=== PATIENT | male | born 1935 | race Caucasian/White ===

== ENCOUNTER 2017-05-30 08:59 | Inpatient (IN) ==
[2017-05-30 10:27] VITALS: BMI 28.8
[2017-05-30] MEDS ORDERED: BUDESONIDE/FORMOTEROL 80/4.5mcg INHALER ORAL INH PRN (12:43)
--- NOTE | 2017-05-30 13:17 | XRay Report ---
Indication: PREOP PROCEDURE: XR chest 1V: Encounter: Initial Comparison: None Findings: Calcified granuloma in the right upper lobe. Lung gillis are otherwise clear. Mild hyperinflation. No pleural effusion or pneumothorax. Heart size and mediastinal contours are within normal limits. Pulmonary vascularity is normal. Scoliosis. Impression: No acute cardiopulmonary disease. Hyperinflation suggesting possible COPD. .
--- NOTE | 2017-05-30 13:52 | Orthopedic Consult Note ---
Orthopedic Consultation HPI - Consultation Info Consult Date: 05/30/17 Attending Physician: Gordon Lozoya MD Consult Reason: fracture (Right hip) - History of Present Illness Mr. Mojica is an 81 year old male who fell while going out to get his mail. Prior to his fall he states he began to shake uncontrollably and got weak. He denied accompanying chest pain or shortness of breath. He denies hitting his head with the fall. He has been able to walk since the fall. His pain is presently in the right lateral hip. It is worse with weight bearing and better with rest. He has been evaluated by Dr. Jay, who ordered right knee, pelvis and right hip films. The X-rays revealed a right hip subcapital femoral neck fracture with minimal valgus angulation. Dr. Lozoya was consulted for definitive surgical management. Dr. Jay's notes are unavailable at the time of this consult. The patient states his past medical history includes cardiac stents, Hep C for which he has completed treatment, and a remote history of smoking ( quite 17 years ago), and "trouble with my prostate". He denies headache, change in vision, tinnitus, trouble swallowing, chest pain, shortness of breath , abdominal pain, dysuria, hematuria, hematochezia peripheral paraesthesias, or open wound. Review of Systems - Constitutional Constitutional: Absent: chills, fatigue, headache(s) - EENT Eyes: Absent: blurry vision, change in vision Ears, nose, mouth, throat: Absent: headaches, head injury, ear pain, tinnitus - Cardiovascular Cardiovascular: Absent: chest pain, edema Vascular: Absent: pallor of an extermity, pedal edema - Respiratory Respiratory: Absent: cough, hemoptysis - Gastrointestinal Gastrointestinal: Absent: dysphagia, hematochezia - Genitourinary Genitourinary General: Present: other (he describes overflow incontinence) - Musculoskeletal Musculoskeletal: Present: as per HPI - Integumentary/Breasts Integumentary: Present: as per HPI. Absent: wounds - Neurological Neurological: Present: as per HPI, abnormal movements, frequent falls, tremor(s) - Endocrine Endocrine: Absent: cold intolerance PFSH Patient Stated Medical History Cataracts Yes: bilateral-removed Hearing Loss Yes Hypertension Yes Pneumonia Yes: when a teenager Gastroesophageal Reflux Yes: "now and then" Disease Hepatitis Yes: hepatitis C-at least 3 yrs ago Hx Renal Disease No Blood Transfusions Yes: as a child - Social History Smoking status: Former smoker Medications Home Medications Medication Instructions Recorded Confirmed Type Amlodipine Besylate 10 mg PO DAILY #0 10/05/09 05/30/17 History Aspirin [Aspir 81] 81 mg PO DAILY #0 10/05/09 05/30/17 History Finasteride 5 mg PO DAILY #0 11/24/11 05/30/17 History Ipratropium/Albuterol Sulfate 1 puff IH QID #0 10/20/13 05/30/17 History (Combivent Inhaler) Nitroglycerin [Nitrostat] 0.4 mg SL PRN PRN #0 tab 10/20/13 05/30/17 History Verapamil HCl [Verapamil ER] 120 mg PO DAILY #0 tab 10/20/13 05/30/17 History Calcium Carbonate [Calcium] 1 tab PO BID #0 02/08/15 05/30/17 History Atorvastatin Calcium 80 mg PO HS 05/30/17 05/30/17 History Budesonide/Formoterol 80/4.5 1 puff INH PRN PRN 05/30/17 05/30/17 History Chlorthalidone 25 mg PO DAILY 05/30/17 05/30/17 History Escitalopram [Lexapro] 10 mg PO DAILY 05/30/17 05/30/17 History Magnesium Oxide 250 mg PO DAILY 05/30/17 05/30/17 History Omeprazole 40 mg PO DAILY 05/30/17 05/30/17 History Tramadol HCl [Ultram] 50 mg PO Q8H PRN 05/30/17 05/30/17 History Allergies Allergy/AdvReac Type Severity Reaction Status Date / Time No Known Drug Allergies Allergy Unknown Verified 05/30/17 10:27 Orthopedic Exam Vital signs: Temperature 96.1 F L 05/30/17 10:28 Pulse Rate 62 05/30/17 10:28 Respiratory Rate 16 05/30/17 10:28 Blood Pressure 148/74 H 05/30/17 10:28 Pulse Oximetry 96 05/30/17 10:28 - Constitutional General Appearance: Present: alert, orientated x3, no acute distress - Respiratory Exam Present: non-labored - Cardiovascular Exam Present: pedal pulses intact Capillary Refill: < 2-3 Seconds - Abdominal Exam Absent: tenderness Comments: negative McBurney's point. Abdomen round, nontender, no rebound tenderness. - Extremities Exam Present: pulses intact. Absent: calf tenderness Comments: right hip TTP over the greater trochanter. He is able to actively IR/ER the hip without excruciating hip pain. - Integumentary Exam Present: pink, warm, dry, intact - Lymphatic Lymphatic: Absent: lymphedema - Neurological Exam Present: intact to light touch, no deficits - Psychiatric Exam Present: normal affect - Labs Result Diagrams: 05/30/17 13:03 05/30/17 13:03 Abnormal lab results 05/30/17 05/30/17 Range/Units 13:03 13:03 RBC 4.45 L (4.50-5.90) M/MM3 Plt Count 129 L (130-400) T/MM3 Neut % (Auto) 74.1 H (33-66) % Lymph % (Auto) 15.9 L (23-45) % BUN 27.0 H (9-20) MG/DL Total Bilirubin 1.40 H (0.20-1.30) MG/DL Specimen Hemolysis 27 H (0-25) H & H 05/30/17 Range/Units 13:03 Hgb 14.0 (13.5-17.5) GM/DL Hct 41.4 (41-53) % Coagulation 05/30/17 Range/Units 13:03 INR 1.17 (0.99-1.21) Impression and Recommendation (1) Fracture of hip, right, closed Current visit: Yes Qualifiers: Encounter type: initial encounter Qualified Code(s): S72.001A - Fracture of unspecified part of neck of right femur, initial encounter for closed fracture Status: Acute Diagnosis: right hip subcapital femoral neck fracture, mild valgus angulation. Recommendation: Dr. Lozoya recommends cannulated screw fixation tomorrow. orders for consent and NPO after midnight will be provided. Medical clearance from Dr. Jay is appreciated. Hospital Course Summary Disclaimer: The visit summary below is not to be considered part of the above Progress Note.
--- NOTE | 2017-05-30 16:18 | Internal Med History&Physical ---
Internal Medicine HPI Chief complaint: Right femoral neck fracture History of present illness: Augustine Mojica is a very pleasant 81-year-old white gentleman who presented to my office yesterday afternoon following a fall at home. His called me about 3: 00 in the afternoon regarding a fall the Augustine had while going out to get the mail. Augustine indicates that he felt a little lightheaded and twisted to his left and then began to fall uncontrollably. He does not describe vertigo. He never lost consciousness. He never hit his head. He states that he really tried to fall into the grass of the yard where was padded. A neighbor helped walk him back up to the house. When Marie brought him to the office he had multiple skin tears along his right arm and an injured left thumb as well as in her right hip pain and knee pain. We cleaned his wound since Steri-Stripped the skin tears and then send him for x-rays. Dr. Lewis notified me this morning that Augustine had sustained a right femoral neck nondisplaced fracture. At that point I contacted his Marie and she was able to contact family members to get him to the hospital for direct admission. Review of Systems - Constitutional Constitutional: Present: weakness. Absent: anorexia, chills, fever(s), headache (s) - EENMT Eyes: Present: requires corrective lenses. Absent: blurry vision, change in vision, diplopia Ears: Absent: ear pain, tinnitus Balance: Absent: vertigo Mouth/Throat: Absent: pain, scratchy throat, changes in swallowing, painful swallowing - Cardiovascular Cardiovascular: Present: edema. Absent: chest pain, palpitations Vascular: Absent: pallor of an extermity, pedal edema - Respiratory Respiratory: Absent: cough, dyspnea, hemoptysis, dyspnea on exertion - Gastrointestinal Gastrointestinal: Absent: abdominal pain, change in bowel habits, constipation, diarrhea, nausea, vomiting - Genitourinary Genitourinary: Present: urinary hesitancy - Musculoskeletal Musculoskeletal: Absent: back pain, deformity - Neurological Neurological: Present: dizziness, tremor(s) - Psychiatric Psychiatric: Absent: abnormal sleep pattern, anxiety, depression - Endocrine Endocrine: Absent: cold intolerance, excessive sweating, flushing, heat intolerance, palpitations - Hematologic/Lymphatic Hematologic/Lymphatic: Present: easy bruising. Absent: easy bleeding, lymphadenopathy - Allergic/Immunologic Allergic/Immunologic: Absent: tongue swelling, throat swelling, urticaria PFSH Patient Stated Medical History Cataracts Yes: bilateral-removed Hearing Loss Yes Hypertension Yes Pneumonia Yes: when a teenager Gastroesophageal Reflux Yes: "now and then" Disease Hepatitis Yes: hepatitis C-at least 3 yrs ago Hx Renal Disease No Blood Transfusions Yes: as a child Medical History Updates: History of hepatitis C. He is now seronegative after treatment. History of left hyperparathyroidism. Status post parathyroidectomy. Surgical History: EGD 2014, heart catheter with stent placement in 2009, hernia repair 2013, myringotomy 2011, Toskes and adenoids 194, left parathyroidectomy 2014. Family History: Father and mother alcohol addiction - Social History Smoking status: Former smoker Substance use type: does not use Alcohol intake frequency: does not drink Housing: house Household members: spouse service: Yes Current occupational status: retired Does patient use chewing tobacco?: No Current residence: Apartment/Private Home Medications Home Medications Medication Instructions Recorded Confirmed Type Amlodipine Besylate 10 mg PO DAILY #0 10/05/09 05/30/17 History Aspirin [Aspir 81] 81 mg PO DAILY #0 10/05/09 05/30/17 History Finasteride 5 mg PO DAILY #0 11/24/11 05/30/17 History Ipratropium/Albuterol Sulfate 1 puff IH QID #0 10/20/13 05/30/17 History (Combivent Inhaler) Nitroglycerin [Nitrostat] 0.4 mg SL PRN PRN #0 tab 10/20/13 05/30/17 History Verapamil HCl [Verapamil ER] 120 mg PO DAILY #0 tab 10/20/13 05/30/17 History Calcium Carbonate [Calcium] 1 tab PO BID #0 02/08/15 05/30/17 History Atorvastatin Calcium 80 mg PO HS 05/30/17 05/30/17 History Budesonide/Formoterol 80/4.5 1 puff INH PRN PRN 05/30/17 05/30/17 History Chlorthalidone 25 mg PO DAILY 05/30/17 05/30/17 History Escitalopram [Lexapro] 10 mg PO DAILY 05/30/17 05/30/17 History Magnesium Oxide 250 mg PO DAILY 05/30/17 05/30/17 History Omeprazole 40 mg PO DAILY 05/30/17 05/30/17 History Tramadol HCl [Ultram] 50 mg PO Q8H PRN 05/30/17 05/30/17 History Allergies Allergy/AdvReac Type Severity Reaction Status Date / Time No Known Drug Allergies Allergy Unknown Verified 05/30/17 10:27 Exam Vital signs: Temperature 96.1 F L 05/30/17 10:28 Pulse Rate 62 05/30/17 10:28 Respiratory Rate 16 05/30/17 10:28 Blood Pressure 148/74 H 05/30/17 10:28 Pulse Oximetry 96 05/30/17 10:28 - Constitutional no acute distress - Routine HEENT Exam Head: Present: normocephalic, atraumatic Eye: Present: EOMI, PERRL, conjunctivae pink. Absent: conjunctival icterus, scleral injection, periorbital swelling ENT: Present: mucous membranes moist, oropharynx clear, nares patent Nose: moist mucous membranes Throat: normal inspection - Routine Neck Exam Present: supple, full ROM, normal carotid upstroke. Absent: JVD, carotid bruit , lymphadenopathy, thyromegaly - Routine Chest/Breast/Axilla Exam Chest wall: Absent: tenderness Breast: Absent: tenderness Axillae: Absent: lymphadenopathy - Routine Respiratory Exam Present: CTA bilaterally. Absent: accessory muscle use, dyspnea, decreased breath sounds, rales, rhonchi, wheezes, crackles - Routine Cardiovascular Exam Present: RRR, no murmur. Absent: S3, S4 - Routine Abdominal Exam Present: soft, normoactive bowel sounds, non distended, non tender. Absent: rebound, guarding, rigid - Routine Extremities Exam Absent: cyanosis, clubbing, edema, full ROM - Routine Skin Exam Present: wounds (multiple skin tags on the right arm) - Routine Neurological Exam Present: alert, oriented X3, tremors (intention) - Routine Psychiatric Exam Present: normal affect, normal thought process, cooperative, good insight, good judgment. Absent: depressed, anxious Internal Medicine Results - Labs CBC & Chem 7: 05/30/17 13:03 05/30/17 13:03 Labs: Short CBC 05/30/17 Range/Units 13:03 WBC 8.1 (4.5-11.0) T/MM3 Hgb 14.0 (13.5-17.5) GM/DL Hct 41.4 (41-53) % Plt Count 129 L (130-400) T/MM3 BMP 05/30/17 13:03 Sodium 142 Potassium 3.7 Chloride 105 Carbon Dioxide 29 BUN 27.0 H Creatinine 1.3 Glucose 95 Calcium 9.4 Liver Function 05/30/17 Range/Units 13:03 Total Bilirubin 1.40 H (0.20-1.30) MG/DL AST 24 (17-59) U/L ALT 40 (21-72) U/L Alkaline Phosphatase 64 (38-126) U/L Albumin 4.0 (3.5-5.0) G/DL - Imaging and Cardiology Chest x-ray Status: image reviewed by me Assessment and Plan - Assessment and Plan (1) Fracture of hip, right, closed Current visit: Yes Status: Acute Ortho consulted and surgery planned for tomorrow (2) Fall with significant injury Current visit: Yes Status: Acute (3) Hypertension Current visit: Yes Status: Chronic (4) Gastroesophageal reflux disease Current visit: Yes Status: Chronic (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
[2017-05-30] MEDS: ATORVASTATIN 40 MG TABLET PO SCH (20:30)
[2017-05-30] MEDS: CALCIUM CARBONATE 600 MG TABLET PO SCH (20:31)
[2017-05-30] MEDS ORDERED: Ipatropium/Albuterol 20/100mcg INHALER (4gm) ORAL INH SCH (21:15)
[2017-05-30] MEDS: ALBUTEROL/IPRATROPIUM 2.5mg-0.5mg/3ml NEB AEROSOL SCH ×2 (21:48→21:51)
[2017-05-30] MEDS: BUDESONIDE/FORMOTEROL 80/4.5mcg INHALER ORAL INH SCH (21:52)
[2017-05-31] MEDS: OMEPRAZOLE 20 MG CAPSULE PO SCH (06:40)
[2017-05-31] MEDS: ALBUTEROL/IPRATROPIUM 2.5mg-0.5mg/3ml NEB AEROSOL SCH ×4 (07:01→19:15)
[2017-05-31] MEDS: Verapamil SR 120 MG TABLET (12Hr) PO SCH ×2 (07:39→08:11)
[2017-05-31] MEDS: CHLORTHALIDONE 25 MG TABLET PO SCH ×2 (07:40→08:11)
[2017-05-31] MEDS: AMLODIPINE 10 MG TABLET PO SCH ×2 (07:40→08:12)
[2017-05-31] MEDS ORDERED: CEFAZOLIN 1 G INJECTION IVP ONE (08:00)
[2017-05-31] MEDS: CALCIUM CARBONATE 600 MG TABLET PO SCH ×2 (08:11→21:51)
[2017-05-31] MEDS: FINASTERIDE 5 MG TABLET PO SCH (08:12)
[2017-05-31] MEDS: MAGNESIUM OXIDE 400 MG TABLET PO SCH (08:12)
[2017-05-31] MEDS: ESCITALOPRAM 10 MG TABLET PO SCH (08:12)
[2017-05-31] MEDS ORDERED: INFLUENZA VAC High Dose 2017-18 (Fluzone HD*) (>=65yo) 0.5ml IM ONE (09:00)
[2017-05-31] MEDS: BUDESONIDE/FORMOTEROL 80/4.5mcg INHALER ORAL INH SCH ×2 (09:14→20:30)
[2017-05-31] MEDS ORDERED: INFLUENZA VAC. INJ. ADMIN CHARGE INJ ONE (09:19)
[2017-05-31] MEDS ORDERED: INHALER ASSIST DEVICE (Optichamber) MC ONE (09:30)
[2017-05-31] MEDS: LR 1,000 ML IV SCH ×2 (11:10→19:38)
[2017-05-31] MEDS ORDERED: PROPOFOL 500 MG/50 ML VIAL IV ONE ×2 (11:45→12:21)
[2017-05-31] MEDS ORDERED: FentaNYL 100 MCG/2 ML INJECTION ONE (12:12)
--- NOTE | 2017-05-31 12:20 | Anesthesia Preoperative Report ---
Anesthesia Preoperative Record - Date and Time Date: 05/31/17 Preoperative Diagnosis: Non Displaced Hip Fracture Proposed Procedure: ORIF RIGHT HIP NPO Since Date: 05/31/17 NPO Since Time: 00:00 Allergies/Adverse Reactions: Allergies Allergy/AdvReac Type Severity Reaction Status Date / Time No Known Drug Allergies Allergy Unknown Verified 05/30/17 10:27 - Vital Signs Vital Signs: Temperature 98.0 F 05/31/17 10:35 Pulse Rate 62 05/31/17 10:35 Respiratory Rate 18 05/31/17 10:35 Blood Pressure 132/65 05/31/17 10:35 Pulse Oximetry 94 05/31/17 10:35 Height and Weight: Height 1.83 m Weight 97.1 kg Body Mass Index 28.8 - Medications Inpatient Medications: Current Medications Albuterol/Ipratropium (Duoneb) 3 ml AEROSOL RTQID [facility] Last Admin: 05/31/17 10:42 Dose: Not Given Amlodipine Besylate (Norvasc) 10 mg PO DAILY [facility] Last Admin: 05/31/17 08:12 Dose: Not Given Atorvastatin Calcium (Lipitor) 80 mg PO HS [facility] Last Admin: 05/30/17 20:30 Dose: 80 mg Budesonide/Formoterol Fumarate (Symbicort Inhaler) 1 puff ORAL INH PRN PRN PRN Reason: Shortness of air Budesonide/Formoterol Fumarate (Symbicort Inhaler) 2 puff ORAL INH RTBID [facility] Last Admin: 05/31/17 09:14 Dose: 2 puff Calcium Carbonate (Caltrate) 600 mg PO BID [facility] Last Admin: 05/31/17 08:11 Dose: Not Given Chlorthalidone (Hygroton) 25 mg PO DAILY [facility] Last Admin: 05/31/17 08:11 Dose: Not Given Escitalopram Oxalate (Lexapro) 10 mg PO DAILY [facility] Last Admin: 05/31/17 08:12 Dose: Not Given Finasteride (Proscar) 5 mg PO DAILY [facility] Last Admin: 05/31/17 08:12 Dose: Not Given Lactated Ringer's (Lactated Ringers) 1,000 mls @ 30 mls/hr IV .Q24H [facility] Last Admin: 05/31/17 11:10 Dose: 30 mls/hr Magnesium Oxide (Magox) 250 mg PO DAILY [facility] Last Admin: 05/31/17 08:12 Dose: Not Given Omeprazole (Prilosec) 40 mg PO ACB [facility] Last Admin: 05/31/17 06:40 Dose: 40 mg Sodium Chloride (Iv Flush) 10 - 80 ml IV PRN PRN PRN Reason: Flushing Verapamil HCl (Calan Sr) 120 mg PO DAILY [facility] Last Admin: 05/31/17 08:11 Dose: Not Given Home Medications: Home Medications Medication Instructions Recorded Confirmed Type Amlodipine Besylate 10 mg PO DAILY #0 10/05/09 05/30/17 History Aspirin [Aspir 81] 81 mg PO DAILY #0 10/05/09 05/30/17 History Finasteride 5 mg PO DAILY #0 11/24/11 05/30/17 History Ipratropium/Albuterol Sulfate 1 puff IH QID #0 10/20/13 05/30/17 History (Combivent Inhaler) Nitroglycerin [Nitrostat] 0.4 mg SL PRN PRN #0 tab 10/20/13 05/30/17 History Verapamil HCl [Verapamil ER] 120 mg PO DAILY #0 tab 10/20/13 05/30/17 History Calcium Carbonate [Calcium] 1 tab PO BID #0 02/08/15 05/30/17 History Atorvastatin Calcium 80 mg PO HS 05/30/17 05/30/17 History Budesonide/Formoterol 80/4.5 2 puff INH BID PRN 05/30/17 05/30/17 History Chlorthalidone 25 mg PO DAILY 05/30/17 05/30/17 History Escitalopram [Lexapro] 10 mg PO DAILY 05/30/17 05/30/17 History Magnesium Oxide 250 mg PO DAILY 05/30/17 05/30/17 History Omeprazole 40 mg PO DAILY 05/30/17 05/30/17 History Tramadol HCl [Ultram] 50 mg PO Q8H PRN 05/30/17 05/30/17 History - Medical History Cardiovascular: Reports: Coronary Artery Disease, Hypertension Gastrointestional: Reports: Gastroesophageal Reflux Disease - Surgical History Cardiac Surgeries/Treatments: DENIES: Pacemaker Endocrine Surgery/Treatments: Reports: Parathyroid Surgery Reproductive Surgery/Treatment: DENIES: Mastectomy Anesthesia Reactions: None Hx Family Anesthesia Reaction: No History of Motion Sickness: No - Social History Smoking Status: Former smoker (QUIT 2000 WITH A 40 YEAR HISTORY) Hx Chewing Tobacco Use: No Substance Use Type: does not use Alcohol Intake Frequency: does not drink - Pertinent Findings Laboratory: CBC and BMP 05/31/17 04:00 05/31/17 04:00 BMP 05/30/17 05/31/17 13:03 04:00 Sodium 142 141 Potassium 3.7 3.3 L Chloride 105 102 Carbon Dioxide 29 30 BUN 27.0 H 24.0 H Creatinine 1.3 1.2 Glucose 95 93 Calcium 9.4 9.1 Liver Function 05/30/17 Range/Units 13:03 Total Bilirubin 1.40 H (0.20-1.30) MG/DL AST 24 (17-59) U/L ALT 40 (21-72) U/L Alkaline Phosphatase 64 (38-126) U/L Albumin 4.0 (3.5-5.0) G/DL EKG: Sinus Rhythm, First Degree AV Block EKG Ectopy: Bundle Branch Block - Physical Exam Respiratory Exam: Present: lungs clear Cardiovascular Exam: Present: regular rate and rhythm - Airway Assessment Mallampati Score: II TMD: 2 Fingerbreadths Teeth: upper dentures, lower dentures Overall Assessment: no airway concerns - ASA ASA Score: 3 - Plan Anesthesia: General TIVA - Discussion Discussion: Discussed risks/options/alternatives of anesthesia and questions answered. Patient consents. Nursing pain assessment noted. Present for Discussion: spouse Attestation Statement: Prior to the delivery of any anesthetic medication, I examined the patient, developed the plan, obtained the patient's consent and discussed the risk and benefits of the procedure with the patient/guardian. - Additional Information Seen by Anesthesia: Yes
[2017-05-31] MEDS ORDERED: BUPIV 0.25% 30ml/LIDO 1% 30ml MIXTURE ID ONE (12:37)
[2017-05-31] MEDS ORDERED: MORPHINE SULFATE 10 MG/ML VIAL IVP PRN (13:31)
[2017-05-31] MEDS ORDERED: ONDANSETRON 4 MG/2 ML INJECTION IVP PRN (13:31)
[2017-05-31] MEDS ORDERED: NOZIN NASAL SWAB NAS ONE (13:31)
[2017-05-31] MEDS: NOZIN NASAL SWAB NAS SCH ×2 (13:42→21:51)
--- NOTE | 2017-05-31 13:53 | Remote Fluorsocopy Report ---
Indication: NONDISPLACED FX OF RIGHT HIP PROCEDURE: RF hip RT 2 view: Encounter: Initial Comparison: Pelvis radiographs dated May 29, 2017 Findings: Four fluoroscopic spot images are submitted for interpretation. Images show internal fixation of the right femoral neck fracture with placement of three partially threaded cannulated screws across the femoral head and neck. Stable alignment. Impression: Fluoroscopy as above. Fluoroscopy time is 70 seconds. Fluoroscopy dose is 2180 mRad. .
[2017-05-31] MEDS: HYDROCODONE/APAP 5mg/325mg TABLET PO PRN ×2 (14:31→21:52)
--- NOTE | 2017-05-31 16:11 | Operative Note ---
DATE OF OPERATION 05/31/2017 PREOPERATIVE DIAGNOSIS Valgus impacted right femoral neck fracture. POSTOPERATIVE DIAGNOSIS Valgus impacted right femoral neck fracture. PROCEDURE Internal fixation of right hip fracture with cannulated screws. SURGEON Ant Lozoya MD [employer]AD[employer] ASSOC[employer]ATE CHRISTY Zhang COMPLICATIONS None ANESTHESIA TIVA with local EBL AND FLUIDS Please see Anesthetic record. DESCRIPTION OF PROCEDURE Mr. Mojica and his right hip were identified and marked in his hospital room bed. He was brought back to the operating suite and placed on the fracture table. He was placed under general anesthesia. Both feet were placed in well- padded traction boots. Right leg was placed into a neutral position without traction. The left leg was placed into extension. Fluoroscopic imaging confirmed stable appearance of the fracture. The right lower extremity was then prepped and draped in my normal sterile fashion. Time-out was performed. I began by making a 3 cm incision laterally. Three cannulated wires were then placed into the proximal femur. The first was placed into an inferior central position. The second two were placed anterior superior and posterior superior. All three were measured. The first screw was a 105 mm screw with a washer. It achieved an excellent bite with an 8.0 screw. The second two were 90 mm screws. They both also achieved excellent bite and both had washers. Multiple fluoroscopic images were taken to ensure good hardware placement. We did not violate the articular surface. The wound was then thoroughly irrigated. The IT band was closed with #1 Vicryl, subcutaneous tissue was then closed with 2-0 Vicryl followed by a running 4-0 Monocryl and then Dermabond and a sterile dressing. The patient was taken out of the traction boots and allowed to awake from general anesthesia and then taken to the recovery room under the care of Anesthesia. Local anesthetic was used at the incision site. He tolerated the procedure well. There were no complications. ASAEL
--- NOTE | 2017-05-31 16:53 | Internal Med Progress Note ---
Internal Medicine Subjective Patient was seen and examined in his room. at the bedside. Questions answered. He underwent orthopedic correction of a right femoral neck nondisplaced fracture earlier today. He was able to stand and walk to the door. His pain is well controlled. At this time his biggest concern seems to be his intention tremor especially noted in his right hand. He has been taking primidone 50 mg for this at home and is not currently on it. I will restart that tonight Exam Vital Signs: Temperature 97.0 F 05/31/17 13:35 Pulse Rate 66 05/31/17 15:27 Respiratory Rate 16 05/31/17 15:27 Blood Pressure 137/67 05/31/17 15:27 Pulse Oximetry 91 05/31/17 15:27 Telemetry Rhythm: Sinus Rhythm Height/Weight/BMI: Height 6 ft Weight 97.1 kg Body Mass Index 28.8 - Constitutional Present: no acute distress - Routine HEENT Exam Head: Present: normocephalic, atraumatic Eye: Present: EOMI, PERRL, conjunctivae pink. Absent: conjunctival icterus, scleral injection ENT: Present: mucous membranes moist, oropharynx clear, nares patent - Routine Neck Exam Present: supple. Absent: carotid bruit, lymphadenopathy - Routine Respiratory Exam Present: CTA bilaterally. Absent: accessory muscle use, rhonchi, stridor, wheezes, crackles - Routine Cardiovascular Exam Present: RRR. Absent: S3, S4 - Routine Abdominal Exam Present: soft, normoactive bowel sounds, non distended, non tender - Routine Extremities Exam Present: pulses intact. Absent: cyanosis, clubbing - Routine Skin Exam Present: wounds (multiple skin tears) - Routine Neurological Exam Present: alert, oriented X3 - Routine Psychiatric Exam Present: normal affect, cooperative, good insight, good judgment. Absent: depressed, anxious Internal Medicine Results - Labs CBC & Chem 7: 05/31/17 04:00 05/31/17 04:00 Labs: Short CBC 05/31/17 Range/Units 04:00 WBC 7.3 (4.5-11.0) T/MM3 Hgb 13.1 L (13.5-17.5) GM/DL Hct 38.6 L (41-53) % Plt Count 130 (130-400) T/MM3 BMP 05/31/17 04:00 Sodium 141 Potassium 3.3 L Chloride 102 Carbon Dioxide 30 BUN 24.0 H Creatinine 1.2 Glucose 93 Calcium 9.1 Progress Note-A&P - Time Spent With Patient Total time spent is greater than 50% in coordination of care (as documented) at patient's floor/unit and/or counseling patient: 25 - 35 minutes (1) Fracture of hip, right, closed Status: Acute Current Visit: Yes (2) Fall with significant injury Status: Acute Current Visit: Yes (3) Hypertension Status: Chronic Current Visit: Yes (4) Gastroesophageal reflux disease Status: Chronic Current Visit: Yes (5) Intention tremor Status: Chronic Current Visit: Yes Hospital Course Summary Disclaimer: The visit summary below is not to be considered part of the above Progress Note. Hospital Course: 05/31/17 16:54 Patient appears to have done well with surgery today. He was able to stand and walk to the door. He is having increased trouble with his intention tremor of the right hand especially since he's been off of his primidone. I will restarted this evening. Hopefully he can be discharged to either inpatient rehabilitation or to home soon.
[2017-05-31] MEDS ORDERED: ACETAMINOPHEN 500 MG TABLET PO PRN (17:22)
[2017-05-31] MEDS: CEFAZOLIN 2 G in NS 100 ML IV SCH (19:37)
[2017-05-31] MEDS: SALINE FLUSH 10ml SYRINGE IV PRN (19:38)
[2017-05-31] MEDS: ATORVASTATIN 40 MG TABLET PO SCH (21:51)
[2017-05-31] MEDS: PRIMIDONE 50 MG TABLET PO SCH (21:51)
[2017-05-31] MEDS: ENOXAPARIN 40 MG/0.4 ML INJECTION SQ SCH (21:52)
[2017-05-31] MEDS ORDERED: FALL RISK - PHARMACY CONSULT XX ONE (22:14)
[2017-06-01] MEDS: CEFAZOLIN 2 G in NS 100 ML IV SCH (03:17)
[2017-06-01] MEDS: HYDROCODONE/APAP 5mg/325mg TABLET PO PRN ×2 (04:32→21:59)
[2017-06-01] MEDS: NOZIN NASAL SWAB NAS SCH ×3 (04:33→21:10)
[2017-06-01] MEDS: OMEPRAZOLE 20 MG CAPSULE PO SCH (06:38)
[2017-06-01] MEDS: Verapamil SR 120 MG TABLET (12Hr) PO SCH (08:38)
[2017-06-01] MEDS: FINASTERIDE 5 MG TABLET PO SCH (08:39)
[2017-06-01] MEDS: CALCIUM CARBONATE 600 MG TABLET PO SCH ×2 (08:39→21:10)
[2017-06-01] MEDS: MAGNESIUM OXIDE 400 MG TABLET PO SCH (08:39)
[2017-06-01] MEDS: AMLODIPINE 10 MG TABLET PO SCH (08:39)
[2017-06-01] MEDS: CHLORTHALIDONE 25 MG TABLET PO SCH (08:39)
[2017-06-01] MEDS: ESCITALOPRAM 10 MG TABLET PO SCH (08:39)
[2017-06-01] MEDS: ALBUTEROL/IPRATROPIUM 2.5mg-0.5mg/3ml NEB AEROSOL SCH ×4 (09:02→19:50)
--- NOTE | 2017-06-01 09:16 | Orthopedic Progress Note ---
Date: Subjective/Severity of Illness: Mr. Mojica is doing well this morning without any specific concerns with the hip. He's been weightbearing without much issue. Orthopedic Objective Vital signs: Temperature 97.9 F 06/01/17 08:00 Pulse Rate 64 06/01/17 08:00 Respiratory Rate 16 06/01/17 08:55 Blood Pressure 118/67 06/01/17 08:00 Pulse Oximetry 93 06/01/17 08:55 Height and Weight: Height 6 ft Weight 99 kg Body Mass Index 28.8 - Constitutional General Appearance: Present: alert, orientated x3, no acute distress - Cardiovascular Exam Present: pedal pulses intact - Extremities Exam Present: pulses intact - Integumentary Exam Present: pink, warm, dry, intact - Lymphatic Lymphatic: Absent: lymphedema - Wound Management Right Hip Primary Dressing: Mepilex - Labs Result Diagrams: 06/01/17 04:23 06/01/17 04:23 Abnormal lab results 06/01/17 06/01/17 Range/Units 04:23 04:23 RBC 3.81 L (4.50-5.90) M/MM3 Hgb 12.1 L (13.5-17.5) GM/DL Hct 35.7 L (41-53) % Plt Count 126 L (130-400) T/MM3 Neut % (Auto) 66.7 H (33-66) % Lymph % (Auto) 18.2 L (23-45) % Mills % (Auto) 12.2 H (0-9.0) % [place] # (Auto) 0.9 H (0-0.8) T/MM3 Potassium 2.9 L* (3.6-5) MEQ/L BUN 23.0 H (9-20) MG/DL Glucose 113 H (75-110) MG/DL H & H 05/30/17 05/31/17 06/01/17 Range/Units 13:03 04:00 04:23 Hgb 14.0 13.1 L 12.1 L (13.5-17.5) GM/DL Hct 41.4 38.6 L 35.7 L (41-53) % Coagulation 05/30/17 Range/Units 13:03 INR 1.17 (0.99-1.21) Orthopedic Assessment and Plan (1) Fracture of hip, right, closed Status: Acute Qualifiers: Encounter type: initial encounter Qualified Code(s): S72.001A - Fracture of unspecified part of neck of right femur, initial encounter for closed fracture Assessment and Plan: Doing well. Continue physical therapy weightbearing as tolerated. - Anticoagulation Therapy Anticoagulation: Lovenox 40 mg SQ Daily x 30 days from day of surgery Hospital Course Summary Disclaimer: The visit summary below is not to be considered part of the above Progress Note. Hospital Course: 05/31/17 16:54 Patient appears to have done well with surgery today. He was able to stand and walk to the door. He is having increased trouble with his intention tremor of the right hand especially since he's been off of his primidone. I will restarted this evening. Hopefully he can be discharged to either inpatient rehabilitation or to home soon.
[2017-06-01] MEDS: BUDESONIDE/FORMOTEROL 80/4.5mcg INHALER ORAL INH SCH ×2 (11:28→20:55)
--- NOTE | 2017-06-01 12:47 | Internal Med Progress Note ---
Internal Medicine Subjective Patient seen and examined in his room. is at the bedside. He appears to be doing very well today. He was evaluated earlier by inpatient rehabilitation. His potassium this morning was low at 2.9 and potassium is been replaced. He denies any chest pain or shortness of breath at this time. He did receive his primidone last night and it has made a marketed improvement in his tremor. Exam Vital Signs: Temperature 97.5 F 06/01/17 11:29 Pulse Rate 66 06/01/17 11:29 Respiratory Rate 16 06/01/17 11:29 Blood Pressure 121/67 06/01/17 11:29 Pulse Oximetry 91 06/01/17 11:29 Telemetry Rhythm: Sinus Rhythm Height/Weight/BMI: Height 6 ft Weight 99 kg Body Mass Index 28.8 - Constitutional Present: no acute distress - Routine HEENT Exam Head: Present: normocephalic, atraumatic Eye: Present: EOMI, PERRL, conjunctivae pink. Absent: conjunctival icterus, scleral injection ENT: Present: mucous membranes moist, oropharynx clear, nares patent - Routine Neck Exam Present: supple. Absent: JVD, carotid bruit - Routine Respiratory Exam Present: CTA bilaterally. Absent: accessory muscle use, rales, respiratory distress, rhonchi, wheezes - Routine Cardiovascular Exam Present: RRR. Absent: S3, S4 - Routine Abdominal Exam Present: soft, non distended, non tender. Absent: rebound, guarding, rigid - Routine Extremities Exam Absent: cyanosis, clubbing, calf tenderness Comments: Right hip postsurgical dressing in place. Clean dry and intact - Routine Skin Exam Present: wounds (multiple skin tears on the right arm). Absent: mottling, petechiae, urticaria, jaundice - Routine Neurological Exam Present: alert, oriented X3 - Routine Psychiatric Exam Present: normal affect, cooperative, good insight, good judgment. Absent: depressed, anxious Internal Medicine Results - Labs CBC & Chem 7: 06/01/17 04:23 06/01/17 04:23 Labs: Short CBC 06/01/17 Range/Units 04:23 WBC 7.3 (4.5-11.0) T/MM3 Hgb 12.1 L (13.5-17.5) GM/DL Hct 35.7 L (41-53) % Plt Count 126 L (130-400) T/MM3 BMP 06/01/17 04:23 Sodium 140 Potassium 2.9 L* Chloride 101 Carbon Dioxide 30 BUN 23.0 H Creatinine 1.2 Glucose 113 H Calcium 8.6 Progress Note-A&P - Time Spent With Patient Total time spent is greater than 50% in coordination of care (as documented) at patient's floor/unit and/or counseling patient: 25 - 35 minutes (1) Fracture of hip, right, closed Status: Acute Current Visit: Yes (2) Fall with significant injury Status: Acute Current Visit: Yes (3) Hypertension Status: Chronic Current Visit: Yes (4) Gastroesophageal reflux disease Status: Chronic Current Visit: Yes (5) Intention tremor Status: Chronic Current Visit: Yes (6) Hypokalemia Status: Acute Current Visit: Yes (7) Constipation by delayed colonic transit Status: Acute Current Visit: Yes Hospital Course Summary Disclaimer: The visit summary below is not to be considered part of the above Progress Note. Hospital Course: 05/31/17 16:54 Patient appears to have done well with surgery today. He was able to stand and walk to the door. He is having increased trouble with his intention tremor of the right hand especially since he's been off of his primidone. I will restarted this evening. Hopefully he can be discharged to either inpatient rehabilitation or to home soon. 06/01/17 12:48 Kevan Trotter is doing quite well today. His potassium was low this morning, it is been replaced. He does complain of constipation so I will order Dulcolax suppository and then mag citrate if needed. Inpatient rehabilitation evaluation pending.
[2017-06-01] MEDS ORDERED: BISACODYL 10 MG SUPPOSITORY RECTALLY ONE (12:50)
[2017-06-01] MEDS: LR 1,000 ML IV SCH (13:46)
[2017-06-01] MEDS: PRIMIDONE 50 MG TABLET PO SCH (21:09)
[2017-06-01] MEDS: ATORVASTATIN 40 MG TABLET PO SCH (21:10)
[2017-06-01] MEDS: ENOXAPARIN 40 MG/0.4 ML INJECTION SQ SCH (21:10)
[2017-06-01] MEDS: SALINE FLUSH 10ml SYRINGE IV PRN (21:59)
[2017-06-02] MEDS: OMEPRAZOLE 20 MG CAPSULE PO SCH (06:26)
[2017-06-02] MEDS: NOZIN NASAL SWAB NAS SCH ×3 (06:26→21:54)
[2017-06-02] MEDS: ALBUTEROL/IPRATROPIUM 2.5mg-0.5mg/3ml NEB AEROSOL SCH ×4 (06:41→20:07)
[2017-06-02] MEDS: CHLORTHALIDONE 25 MG TABLET PO SCH (08:41)
[2017-06-02] MEDS: CALCIUM CARBONATE 600 MG TABLET PO SCH ×2 (08:41→21:54)
[2017-06-02] MEDS: AMLODIPINE 10 MG TABLET PO SCH (08:41)
[2017-06-02] MEDS: Verapamil SR 120 MG TABLET (12Hr) PO SCH (08:42)
[2017-06-02] MEDS: ESCITALOPRAM 10 MG TABLET PO SCH (08:42)
[2017-06-02] MEDS: FINASTERIDE 5 MG TABLET PO SCH (08:42)
[2017-06-02] MEDS: MAGNESIUM OXIDE 400 MG TABLET PO SCH (08:42)
[2017-06-02] MEDS: BUDESONIDE/FORMOTEROL 80/4.5mcg INHALER ORAL INH SCH ×2 (09:02→20:08)
--- NOTE | 2017-06-02 09:49 | Orthopedic Progress Note ---
Date: Subjective/Severity of Illness: POD 2 sp cannulated screws right hip for non-displaced femoral neck fracture. Patient is up in chair this morning. Report he is mobilizing with minimal pain with PT and staff. Tolerating PO well. No new complaints. Orthopedic Objective PO Vital signs: Temperature 96.8 F 06/02/17 08:21 Pulse Rate 64 06/02/17 08:21 Respiratory Rate 16 06/02/17 09:02 Blood Pressure 142/69 H 06/02/17 08:21 Pulse Oximetry 93 06/02/17 08:21 Height and Weight: Height 6 ft Weight 218 lb 11.177 oz Body Mass Index 28.8 - Constitutional General Appearance: Present: alert, orientated x3, no acute distress - Respiratory Exam Present: non-labored - Cardiovascular Exam Present: pedal pulses intact Capillary Refill: < 2-3 Seconds - Abdominal Exam Absent: tenderness - Extremities Exam Extremities: Present: normal capillary refill. Absent: calf tenderness, Niecy' s sign - Hip Exam Hip Exam: Present: alignment normal - Surgical Site Incision: clean, dry, intact, no drainage - Integumentary Exam Present: pink, warm, dry, intact - Lymphatic Lymphatic: Absent: lymphedema - Neurological Exam Present: intact to light touch, no deficits - Psychiatric Exam Present: normal affect - Wound Management Right Hip Primary Dressing: Mepilex - Labs Result Diagrams: 06/02/17 04:37 06/02/17 04:37 Abnormal lab results 06/01/17 06/02/17 06/02/17 Range/Units 16:53 04:37 04:37 RBC 3.66 L (4.50-5.90) M/MM3 Hgb 11.6 L (13.5-17.5) GM/DL Hct 34.7 L (41-53) % Bath % (Auto) 12.1 H (0-9.0) % [place] # (Auto) 0.9 H (0-0.8) T/MM3 Potassium 3.5 L D 3.0 L (3.6-5) MEQ/L BUN 23.0 H 23.0 H (9-20) MG/DL Glucose 130 H 116 H (75-110) MG/DL H & H 05/30/17 05/31/17 06/01/17 Range/Units 13:03 04:00 04:23 Hgb 14.0 13.1 L 12.1 L (13.5-17.5) GM/DL Hct 41.4 38.6 L 35.7 L (41-53) % 06/02/17 Range/Units 04:37 Hgb 11.6 L (13.5-17.5) GM/DL Hct 34.7 L (41-53) % Coagulation 05/30/17 Range/Units 13:03 INR 1.17 (0.99-1.21) Orthopedic Assessment and Plan (1) Fracture of hip, right, closed Status: Acute Qualifiers: Encounter type: initial encounter Qualified Code(s): S72.001A - Fracture of unspecified part of neck of right femur, initial encounter for closed fracture Assessment and Plan: POD 2 sp cannulated screws right hip. No new issues. Doing well. Continue physical therapy weightbearing as tolerated. - Anticoagulation Therapy Anticoagulation: Lovenox 40 mg SQ Daily x 30 days from day of surgery Hospital Course Summary Disclaimer: The visit summary below is not to be considered part of the above Progress Note. Hospital Course: 05/31/17 16:54 Patient appears to have done well with surgery today. He was able to stand and walk to the door. He is having increased trouble with his intention tremor of the right hand especially since he's been off of his primidone. I will restarted this evening. Hopefully he can be discharged to either inpatient rehabilitation or to home soon. 06/01/17 12:48 Kevan Trotter is doing quite well today. His potassium was low this morning, it is been replaced. He does complain of constipation so I will order Dulcolax suppository and then mag citrate if needed. Inpatient rehabilitation evaluation pending.
[2017-06-02] MEDS: LR 1,000 ML IV SCH (09:51)
[2017-06-02] MEDS: LIDOCAINE 1% INJ 10 MG, POTASSIUM CHLORIDE INJ 10 MEQ in NS 100 ML IV SCH ×4 (11:17→15:01)
[2017-06-02] MEDS ORDERED: TRAMADOL 50 MG TABLET PO PRN (14:46)
--- NOTE | 2017-06-02 14:46 | Progress Note ---
<Luda Bella - Last Filed: 06/02/17 14:42> Subjective: Augustine is seen today, POD #2, following placement of cannulated screws to right hip for non-displaced femoral neck fracture. Overall, he states he is doing well. He does complain of some generalized abdominal fullness and admits that he has not had a BM in a few days. Review of his medications revealed only PRN MOM available which he was given this AM. He denies any other complaints including no chest pain, shortness of breath, nausea, vomiting or dysuria. His appetite has been good and he was able to eat all his breakfast and lunch today without issues. He has been able to ambulate with assistance and his cane and has been participating in therapy. Review of medical chart and nursing notes indicates hypokalemia yesterday with potassium at 2.9 in AM. He was given a total of 80 mEq of KCl and recheck of his potassium yesterday afternoon revealed improvement at 3.5. Review of morning labs today revealed reoccurrence of hypokalemia with potassium at 3.0. CBC revealed persistent anemia with hemoglobin of 11.6. He denies any dizziness, lightheadedness or syncope. No heart palpitation or irregular heart beat. Review of telemetry revealed sinus rhythm with occasional bradycardia and bundle branch block, all unchanged since admission. Blood pressure remains slightly elevated despite antihypertensive treatment. Objective Vital signs: Temperature 97.0 F 06/02/17 11:48 Pulse Rate 63 06/02/17 11:48 Respiratory Rate 20 06/02/17 11:48 Blood Pressure 141/68 H 06/02/17 11:48 Pulse Oximetry 96 06/02/17 11:48 Rhythm: Sinus Bradycardia, Bundle Branch Block Height/Weight/BMI: Height 6 ft Weight 218 lb 11.177 oz Body Mass Index 28.8 - Constitutional Present: no acute distress, well nourished, well developed, obese, cooperative - Routine HEENT Exam Head: Present: normocephalic, atraumatic Eye: Present: PERRL. Absent: conjunctival icterus ENT: Present: mucous membranes moist - Routine Respiratory Exam Present: CTA bilaterally. Absent: stridor, wheezes, crackles - Routine Cardiovascular Exam Present: RRR, S1, S2 - Routine Abdominal Exam Present: soft, non tender, distended Comments: hypoactive bowel sounds; obese. - Routine Extremities Exam Present: edema (trace), pulses intact Comments: ice pack to right hip; bandage clean, dry and intact; SCDs in place. - Routine Back/Spine/Pelvis Exam Back/Spine: Present: full ROM - Routine Musculoskeletal Exam Musculoskeletal: Present: moving extremities well - Routine Skin Exam Present: dry, warm. Absent: jaundice Comments: afebrile. - Routine Neurological Exam Present: alert, moving all extremities, normal speech - Routine Lymphatic Exam Lymphatic: Absent: lymphedema - Routine Psychiatric Exam Present: cooperative Results - Labs CBC & Chem 7: 06/02/17 04:37 06/02/17 04:37 Assessment and Plan (1) Hypokalemia Current visit: Yes Status: Acute (2) Fracture of hip, right, closed Current visit: Yes Status: Acute (3) Fall with significant injury Current visit: Yes Status: Acute (4) Hypertension Current visit: Yes Status: Chronic (5) Gastroesophageal reflux disease Current visit: Yes Status: Chronic (6) Intention tremor Current visit: Yes Status: Chronic (7) Constipation by delayed colonic transit Current visit: Yes Status: Acute DVT Prophylaxis: SCD's, Lovenox Assessment and Plan: 05/31/17 16:54 Patient appears to have done well with surgery today. He was able to stand and walk to the door. He is having increased trouble with his intention tremor of the right hand especially since he's been off of his primidone. I will restarted this evening. Hopefully he can be discharged to either inpatient rehabilitation or to home soon. 06/01/17 12:48 Augustine is doing quite well today. His potassium was low this morning, it is been replaced. He does complain of constipation so I will order Dulcolax suppository and then mag citrate if needed. Inpatient rehabilitation evaluation pending. 06/02/17 Overall, Augustine is doing well and making slow gains. POD #2. He complains of constipation. MOM given and additional bowel motivation provided. Encourage ambulation. Eating and drinking well. Review of labs this morning revealed persistent anemia with hemoglobin at 11.6. Continue to monitor blood counts periodically. Hypokalemia noted again this morning at 3.0. Potassium was 2.9 yesterday morning and improvement noted after receiving a total of 80 mEq KCl orally with recheck potassium at 3.5 yesterday afternoon. Will given IV potassium total 40 mEq now. Change IV fluids from LR to NS with KCl at 50cc/ hr. Will recheck BMP in AM to monitor electrolytes and renal function. Mag on 06/01 was stable at 2.1. Will recheck Mg in AM. Monitor closely on telemetry in light of hypokalemia. Blood pressure slightly elevated. Continue to monitor closely and continue home medications. Hospital Course Summary Disclaimer: The visit summary below is not to be considered part of the above Progress Note. Hospital Course: 05/31/17 16:54 Patient appears to have done well with surgery today. He was able to stand and walk to the door. He is having increased trouble with his intention tremor of the right hand especially since he's been off of his primidone. I will restarted this evening. Hopefully he can be discharged to either inpatient rehabilitation or to home soon. 06/01/17 12:48 Kevan Trotter is doing quite well today. His potassium was low this morning, it is been replaced. He does complain of constipation so I will order Dulcolax suppository and then mag citrate if needed. Inpatient rehabilitation evaluation pending. 06/02/17 Overall, Augustine is doing well and making slow gains. POD #2. He complains of constipation. MOM given and additional bowel motivation provided. Encourage ambulation. Eating and drinking well. Review of labs this morning revealed persistent anemia with hemoglobin at 11.6. Continue to monitor blood counts periodically. Hypokalemia noted again this morning at 3.0. Potassium was 2.9 yesterday morning and improvement noted after receiving a total of 80 mEq KCl orally with recheck potassium at 3.5 yesterday afternoon. Will given IV potassium total 40 mEq now. Change IV fluids from LR to NS with KCl at 50cc/ hr. Will recheck BMP in AM to monitor electrolytes and renal function. Mag on 06/01 was stable at 2.1. Will recheck Mg in AM. Monitor closely on telemetry in light of hypokalemia. Blood pressure slightly elevated. Continue to monitor closely and continue home medications. <Vasu Dugan - Last Filed: 06/02/17 16:23> Objective Vital signs: Temperature 97.0 F 06/02/17 11:48 Pulse Rate 63 06/02/17 11:48 Respiratory Rate 18 06/02/17 15:44 Blood Pressure 141/68 H 06/02/17 11:48 Pulse Oximetry 97 06/02/17 15:44 Height/Weight/BMI: Height 1.83 m Weight 99.2 kg Body Mass Index 28.8 Results - Labs CBC & Chem 7: 06/02/17 04:37 06/02/17 04:37 Assessment and Plan (1) Fracture of hip, right, closed Current visit: Yes Status: Acute (2) Hypertension Current visit: Yes Status: Chronic (3) Gastroesophageal reflux disease Current visit: Yes Status: Chronic (4) Intention tremor Current visit: Yes Status: Chronic (5) Fall with significant injury Current visit: Yes Status: Acute (6) Hypokalemia Current visit: Yes Status: Acute (7) Constipation by delayed colonic transit Current visit: Yes Status: Acute Assessment and Plan: Covering for Dr Jay Have independently interviewed and examined patient. Chart reviewed. Case discussed with nursing and my PA. Care plan developed with my supervision; agree with above. Pain controlled-not hurting with activities. Breathing well-no increase cough, congestion, or pain with breathing. Stools very problematic-minimal output, very bloated and full to abdomen. Noted appetite decreased due to his abdominal fullness. Urinating well. Lungs: decreased, no distress CV: regular AB: soft, distended, NT; BS present MSE: awake alert appropriate Lab: potassium 3.0 this morning. Magnesium normal at 2.1. Plan: Replace potassium - IV boluses given. Start oral potassium 20mEq BID with meals. Work on bowel function-Miralax and Senna added routinely. MOM and Dulcolax given. Fleets enema to help decompress from below. Patient declined by [facility] - looking at [facility] for skilled care at time of discharge. Hospital Course Summary Disclaimer: The visit summary below is not to be considered part of the above Progress Note.
[2017-06-02] MEDS: POLYETHYL GLYCOL 3350 17gm PACKET PO SCH (15:39)
[2017-06-02] MEDS ORDERED: FLEET PHOSPHO - SODA ENEMA 133ml PR PRN (16:13)
[2017-06-02] MEDS: NS with KCL 20 mEq 1,000 ML IV SCH (16:27)
[2017-06-02] MEDS: SENNA + DOCUSATE TABLET PO SCH (21:54)
[2017-06-02] MEDS: PRIMIDONE 50 MG TABLET PO SCH (21:54)
[2017-06-02] MEDS: ATORVASTATIN 40 MG TABLET PO SCH (21:54)
[2017-06-02] MEDS: ENOXAPARIN 40 MG/0.4 ML INJECTION SQ SCH (21:54)
[2017-06-03] MEDS: OMEPRAZOLE 20 MG CAPSULE PO SCH (06:39)
[2017-06-03] MEDS: NOZIN NASAL SWAB NAS SCH ×2 (06:39→13:30)
[2017-06-03] MEDS: ALBUTEROL/IPRATROPIUM 2.5mg-0.5mg/3ml NEB AEROSOL SCH ×2 (06:51→11:54)
[2017-06-03] MEDS: BUDESONIDE/FORMOTEROL 80/4.5mcg INHALER ORAL INH SCH (07:59)
[2017-06-03] MEDS ORDERED: ASPIRIN *EC* 81 MG TABLET PO SCH (09:00)
[2017-06-03] MEDS: Verapamil SR 120 MG TABLET (12Hr) PO SCH (09:59)
[2017-06-03] MEDS: CALCIUM CARBONATE 600 MG TABLET PO SCH (10:00)
[2017-06-03] MEDS: CHLORTHALIDONE 25 MG TABLET PO SCH (10:00)
[2017-06-03] MEDS: AMLODIPINE 10 MG TABLET PO SCH (10:00)
[2017-06-03] MEDS: FINASTERIDE 5 MG TABLET PO SCH (10:01)
[2017-06-03] MEDS: ESCITALOPRAM 10 MG TABLET PO SCH (10:01)
[2017-06-03] MEDS: MAGNESIUM OXIDE 400 MG TABLET PO SCH (10:02)
[2017-06-03] MEDS: SENNA + DOCUSATE TABLET PO SCH (10:02)
[2017-06-03] MEDS: POLYETHYL GLYCOL 3350 17gm PACKET PO SCH (10:02)
--- NOTE | 2017-06-03 10:06 | Orthopedic Progress Note ---
Date: Subjective/Severity of Illness: POD 3 sp cannulated screws right hip for non-displaced femoral neck fracture. Patient is up in chair this morning. Had a BM last night so improved. Report he is mobilizing with minimal pain with PT and staff. Tolerating PO well. No new complaints. Orthopedic Objective PO Vital signs: Temperature 96.2 F L 06/03/17 04:00 Pulse Rate 64 06/03/17 08:10 Respiratory Rate 16 06/03/17 08:00 Blood Pressure 133/72 06/03/17 04:00 Pulse Oximetry 97 06/03/17 06:53 Height and Weight: Height 6 ft Weight 220 lb 3.869 oz Body Mass Index 28.8 - Constitutional General Appearance: Present: alert, orientated x3, no acute distress - Respiratory Exam Present: non-labored - Cardiovascular Exam Present: pedal pulses intact - Abdominal Exam Absent: tenderness - Extremities Exam Extremities: Present: normal capillary refill. Absent: calf tenderness, Niecy' s sign - Hip Exam Hip Exam: Present: alignment normal - Surgical Site Incision: clean, dry, intact, no drainage - Integumentary Exam Present: pink, warm, dry, intact - Lymphatic Lymphatic: Absent: lymphedema - Neurological Exam Present: intact to light touch, no deficits - Psychiatric Exam Present: normal affect - Wound Management Right Hip Primary Dressing: Mepilex - Labs Result Diagrams: 06/03/17 04:03 06/03/17 04:03 Abnormal lab results 06/03/17 06/03/17 Range/Units 04:03 04:03 RBC 3.67 L (4.50-5.90) M/MM3 Hgb 11.6 L (13.5-17.5) GM/DL Hct 34.9 L (41-53) % Neut % (Auto) 70.2 H (33-66) % Lymph % (Auto) 19.1 L (23-45) % Carbon Dioxide 31 H (22-30) MEQ/L H & H 05/30/17 05/31/17 06/01/17 Range/Units 13:03 04:00 04:23 Hgb 14.0 13.1 L 12.1 L (13.5-17.5) GM/DL Hct 41.4 38.6 L 35.7 L (41-53) % 06/02/17 06/03/17 Range/Units 04:37 04:03 Hgb 11.6 L 11.6 L (13.5-17.5) GM/DL Hct 34.7 L 34.9 L (41-53) % Coagulation 05/30/17 Range/Units 13:03 INR 1.17 (0.99-1.21) Orthopedic Assessment and Plan (1) Fracture of hip, right, closed Status: Acute Qualifiers: Encounter type: initial encounter Qualified Code(s): S72.001A - Fracture of unspecified part of neck of right femur, initial encounter for closed fracture Assessment and Plan: POD 3 sp cannulated screws right hip. No new issues. Doing well. Continue physical therapy weightbearing as tolerated. Possible discharge today according to staff. FU with Dr. Lozoya or Keyshawn in 2 weeks or so. - Anticoagulation Therapy Anticoagulation: Lovenox 40 mg SQ Daily x 30 days from day of surgery Hospital Course Summary Disclaimer: The visit summary below is not to be considered part of the above Progress Note. Hospital Course: 05/31/17 16:54 Patient appears to have done well with surgery today. He was able to stand and walk to the door. He is having increased trouble with his intention tremor of the right hand especially since he's been off of his primidone. I will restarted this evening. Hopefully he can be discharged to either inpatient rehabilitation or to home soon. 06/01/17 12:48 Kevan Trotter is doing quite well today. His potassium was low this morning, it is been replaced. He does complain of constipation so I will order Dulcolax suppository and then mag citrate if needed. Inpatient rehabilitation evaluation pending. 06/02/17 Overall, Augustine is doing well and making slow gains. POD #2. He complains of constipation. MOM given and additional bowel motivation provided. Encourage ambulation. Eating and drinking well. Review of labs this morning revealed persistent anemia with hemoglobin at 11.6. Continue to monitor blood counts periodically. Hypokalemia noted again this morning at 3.0. Potassium was 2.9 yesterday morning and improvement noted after receiving a total of 80 mEq KCl orally with recheck potassium at 3.5 yesterday afternoon. Will given IV potassium total 40 mEq now. Change IV fluids from LR to NS with KCl at 50cc/ hr. Will recheck BMP in AM to monitor electrolytes and renal function. Mag on 06/01 was stable at 2.1. Will recheck Mg in AM. Monitor closely on telemetry in light of hypokalemia. Blood pressure slightly elevated. Continue to monitor closely and continue home medications.
--- NOTE | 2017-06-03 10:48 | Discharge Summary ---
<Fidelia Jeffery - Last Filed: 06/03/17 10:42> Discharge Information Date of admission: 05/30/17 09:57 Anticipated date of discharge: 06/03/17 (To [facility]) Attending Physician: Ok Jay DO Primary care physician: Ok Jay DO Consults: 05/30/17 Physician Consult [CONS] Routine Consulting Provider: Ant Lozoya Reason For Exam: NON DISPLACED HIP FRACTURE - Discharge Diagnosis (1) Fracture of hip, right, closed Status: Acute (2) Hypertension Status: Chronic (3) Gastroesophageal reflux disease Status: Chronic (4) Intention tremor Status: Chronic (5) Fall with significant injury Status: Acute (6) Hypokalemia Status: Acute (7) Constipation by delayed colonic transit Status: Acute - Procedures Procedures: DATE OF OPERATION 05/31/2017 PREOPERATIVE DIAGNOSIS Valgus impacted right femoral neck fracture. POSTOPERATIVE DIAGNOSIS Valgus impacted right femoral neck fracture. PROCEDURE Internal fixation of right hip fracture with cannulated screws. SURGEON Ant Lozoya MD BALLET PROFESSOR CHRISTY Zhang COMPLICATIONS None ANESTHESIA TIVA with local EBL AND FLUIDS Please see Anesthetic record. DESCRIPTION OF PROCEDURE Mr. Mojica and his right hip were identified and marked in his hospital room bed. He was brought back to the operating suite and placed on the fracture table. He was placed under general anesthesia. Both feet were placed in well- padded traction boots. Right leg was placed into a neutral position without traction. The left leg was placed into extension. Fluoroscopic imaging confirmed stable appearance of the fracture. The right lower extremity was then prepped and draped in my normal sterile fashion. Time-out was performed. I began by making a 3 cm incision laterally. Three cannulated wires were then placed into the proximal femur. The first was placed into an inferior central position. The second two were placed anterior superior and posterior superior. All three were measured. The first screw was a 105 mm screw with a washer. It achieved an excellent bite with an 8.0 screw. The second two were 90 mm screws. They both also achieved excellent bite and both had washers. Multiple fluoroscopic images were taken to ensure good hardware placement. We did not violate the articular surface. The wound was then thoroughly irrigated. The IT band was closed with #1 Vicryl, subcutaneous tissue was then closed with 2-0 Vicryl followed by a running 4-0 Monocryl and then Dermabond and a sterile dressing. The patient was taken out of the traction boots and allowed to awake from general anesthesia and then taken to the recovery room under the care of Anesthesia. Local anesthetic was used at the incision site. He tolerated the procedure well. There were no complications. - Laboratory Labs: 06/03/17 04:03 06/03/17 04:03 Laboratory Tests 05/30/17 06/01/17 06/03/17 13:03 04:23 04:03 Hgb 14.0 12.1 L 11.6 L Laboratory Tests 05/30/17 06/01/17 06/03/17 13:03 04:23 04:03 Creatinine 1.3 1.2 0.9 D Laboratory Tests 05/30/17 06/01/17 06/02/17 13:03 04:23 04:37 Potassium 3.7 2.9 L* 3.0 L History of Present Illness HPI: Augustine Mojica is a very pleasant 81-year-old white gentleman who presented to my office yesterday afternoon following a fall at home. His called me about 3: 00 in the afternoon regarding a fall the Augustine had while going out to get the mail. Augustine indicates that he felt a little lightheaded and twisted to his left and then began to fall uncontrollably. He does not describe vertigo. He never lost consciousness. He never hit his head. He states that he really tried to fall into the grass of the yard where was padded. A neighbor helped walk him back up to the house. When Marie brought him to the office he had multiple skin tears along his right arm and an injured left thumb as well as in her right hip pain and knee pain. We cleaned his wound since Steri-Stripped the skin tears and then send him for x-rays. Dr. Lewis notified me this morning that Augustine had sustained a right femoral neck nondisplaced fracture. At that point I contacted his Marie and she was able to contact family members to get him to the hospital for direct admission. Objective Vital signs: Temperature 95.9 F L 06/03/17 08:00 Pulse Rate 64 06/03/17 08:10 Respiratory Rate 18 06/03/17 08:00 Blood Pressure 129/69 06/03/17 08:00 Pulse Oximetry 92 10/08/17 08:00 Rhythm: Sinus Bradycardia, Bundle Branch Block Height/Weight/BMI: Height 1.83 m Weight 99.9 kg Body Mass Index 28.8 - Constitutional Present: no acute distress, well nourished, well developed - Routine Respiratory Exam Present: CTA bilaterally. Absent: wheezes, crackles - Routine Cardiovascular Exam Present: RRR, S1, S2. Absent: murmur - Routine Abdominal Exam Present: soft, normoactive bowel sounds, non distended. Absent: tenderness - Routine Extremities Exam Present: edema (1+ b/l). Absent: calf tenderness - Routine Skin Exam Present: dry, warm - Routine Neurological Exam Present: alert, oriented X3 - Routine Psychiatric Exam Present: normal affect, normal thought process, cooperative Hospital Course This is a general summary of the patient's hospital course. For more details refer to the complete medical record. Hospital course: 05/31/17 16:54 Patient appears to have done well with surgery today. He was able to stand and walk to the door. He is having increased trouble with his intention tremor of the right hand especially since he's been off of his primidone. I will restarted this evening. Hopefully he can be discharged to either inpatient rehabilitation or to home soon. 06/01/17 12:48 Kevan Trotter is doing quite well today. His potassium was low this morning, it is been replaced. He does complain of constipation so I will order Dulcolax suppository and then mag citrate if needed. Inpatient rehabilitation evaluation pending. 06/02/17 Overall, Augustine is doing well and making slow gains. POD #2. He complains of constipation. MOM given and additional bowel motivation provided. Encourage ambulation. Eating and drinking well. Review of labs this morning revealed persistent anemia with hemoglobin at 11.6. Continue to monitor blood counts periodically. Hypokalemia noted again this morning at 3.0. Potassium was 2.9 yesterday morning and improvement noted after receiving a total of 80 mEq KCl orally with recheck potassium at 3.5 yesterday afternoon. Will given IV potassium total 40 mEq now. Change IV fluids from LR to NS with KCl at 50cc/ hr. Will recheck BMP in AM to monitor electrolytes and renal function. Mag on 06/01 was stable at 2.1. Will recheck Mg in AM. Monitor closely on telemetry in light of hypokalemia. Blood pressure slightly elevated. 06/03/17 Patient is being discharged to [facility] today. His potassium is normal today at 3.8. Will continue him on KCl 10 MEq twice a day. His hemoglobin is stable at 11.6. Repeat CBC and BMP on 06/05/17. To see Dr. Jay in a week. See GUADALUPE Zhang in 2 weeks for Ortho follow-up. Continue Lovenox daily for a total of 30 days from day of surgery. Will need 27 more doses. Time spent with patient: discharge greater than 30 minutes Discharge Plan - Med Rec/Dispo Referrals/Follow Up: Keyshawn Rudd PA [Physician Milk Drying Machine Operator] - 2 Days Ok Jay DO [Family Provider] - 1 Week Kuldipdeborah Instructions: [facility] Ortho Postop Instructions Additional Instructions: BMP and CBC on 06/05/17. Continue Lovenox daily for 27 more days. New med started during hospitalization: Potassium chloride 10 mEq BID Prescriptions: New Enoxaparin Sodium [Lovenox] 40 mg SQ Q24H 27 Days #27 syringe Potassium Chloride [K-Dur] 10 meq PO BIDWM #30 tablet Primidone [Mysoline] 50 mg PO HS tablet Milk of Magnesia [Mom] 30 ml PO DAILY PRN udc PRN Reason: Constipation Senna + Docusate [Senna Plus Tablet] 1 tab PO BID tablet Continue Finasteride 5 mg PO DAILY #0 Verapamil HCl [Verapamil ER] 120 mg PO DAILY #0 tab Calcium Carbonate [Calcium] 1 tab PO BID #0 Budesonide/Formoterol 80/4.5 2 puff INH BID PRN PRN Reason: Shortness Of Air Escitalopram [Lexapro] 10 mg PO DAILY Atorvastatin Calcium 80 mg PO HS Magnesium Oxide 250 mg PO DAILY Tramadol HCl [Ultram] 50 mg PO Q8H PRN #15 tab PRN Reason: Pain Amlodipine Besylate 10 mg PO DAILY #0 Aspirin [Aspir 81] 81 mg PO DAILY #0 Ipratropium/Albuterol Sulfate (Combivent Inhaler) 1 puff IH QID #0 Nitroglycerin [Nitrostat] 0.4 mg SL PRN PRN #0 tab PRN Reason: Chest Pain Omeprazole 40 mg PO DAILY Chlorthalidone 25 mg PO DAILY Discharge Instructions/Outpatient Orders: Final Provider Discharge Instructions Location: Determined By Patient - Disposition 03 To SNU Not [facility] (SNF) <Vasu Dugan - Last Filed: 06/03/17 13:22> Discharge Information Date of admission: 05/30/17 09:57 Attending Physician: Ok Jay DO Primary care physician: Ok Jay DO Consults: 05/30/17 12:45 Physician Consult [CONS] Routine Consulting Provider: Ant Lozoya Reason For Exam: NON DISPLACED HIP FRACTURE Ordering Provider has Notified Mobile Home Servicer: Yes 06/01/17 IRU Screening [Inpatient Rehab Screening] [CONS] Routine Screen requested by:: Case Management 06/01/17 12:01 Physician Consult [CONS] Routine Consulting Provider: Fredy Gordillo Reason For Exam: CONT CARE Ordering Provider has Notified Mobile Home Servicer: Yes - Discharge Diagnosis (1) Fracture of hip, right, closed Status: Acute (2) Hypertension Status: Chronic (3) Gastroesophageal reflux disease Status: Chronic (4) Intention tremor Status: Chronic (5) Fall with significant injury Status: Acute (6) Hypokalemia Status: Acute (7) Constipation by delayed colonic transit Status: Acute - Laboratory Labs: 06/03/17 04:03 06/03/17 04:03 Objective Vital signs: Temperature 95.9 F L 06/03/17 08:00 Pulse Rate 64 06/03/17 08:10 Respiratory Rate 16 06/03/17 11:55 Blood Pressure 129/69 06/03/17 08:00 Pulse Oximetry 97 06/03/17 11:55 Height/Weight/BMI: Height 1.83 m Weight 99.9 kg Body Mass Index 28.8 Hospital Course This is a general summary of the patient's hospital course. For more details refer to the complete medical record. Discharge Plan - Med Rec/Dispo - Attestation Attestation Narrative: 06/03/17 I have independently interviewed and examined patient prior to discharge. Chart reviewed. Case discussed with my PA and nursing. Care plan developed with my supervision; agree with above. Doing well today. Pain controlled; not hurting or in pain. Breathing well. Stools moving. Potassium improved. Lungs: clear. CV: regular. Ab: soft nt/nd +BD. MSE: awake alert appropriate Plan: Medically stable for discharge to snf at . See orders for details.
--- NOTE | 2017-06-03 10:49 | Extended Care Facility Orders ---
Admission Orders Admit to:: [facility] Allergies/Adverse Reactions: Allergies No Known Drug Allergies Allergy (Unknown, Verified 05/30/17 10:27) Admitting Diagnosis: Non Displaced Hip Fracture Admitting Physician: Ok Jay DO Attending Physician: Ok Jay DO Code Status: Full Anticiapted Length of Stay: 30 days or less Rehab Potential: good Rehab Prognosis: good Diet: Regular Wound/Incision Care: Keep wound covered and dry. May shower. Wash with hibiclens , replace steri strips if needed and cover with gauze and ramona wrap, change prn May use Facility Protocol or Standing Orders: Yes May have flu vaccine: Yes Evaluations/Treatment: PT, OT [facility] Certification: I certify that SNF services are required to be given on an Inpatient basis because of the patients need for custodial care on a continuing basis for the condition(s) for which he/she received inpatient hospital services prior to his/her transfer to the SNF. SNF inpatient care is necessary for the following reasons Indication for [facility]: Wound Care/Assessment, Other (Skilled PT/OT to maximize functional status) - Additional Information In Event of Arrest: Start CPR,call 911,send patient to the ER Resident is Aware of Diagnosis: Yes Referrals: Keyshawn Rudd PA [Physician Cartridge Feeder] - 2 Days Ok Jay DO [Family Provider] - 1 Week Additional Orders: F/U with Dr Jay in 1 week. F/U with Dr Lozoya or Keyshawn in 2 weeks. Weight bearing as tolerated. May use ICE Pack as needed for pain control. IS every hour while awake. BMP on 06/05/17 - Hx: Hypokalemia, medication use - results to Dr Jay. O2 as needed to keep saturations >90%.
[2017-06-03] MEDS: NS with KCL 20 mEq 1,000 ML IV SCH (10:56)
[2017-06-03 11:57] VITALS: RESP 16
[2017-06-03 15:22] VITALS: BP 133/72; PULSE 66; TEMP 97; O2SAT 95
== END 2017-06-03 15:20 | DRG 482 ==
LOC: SRG 09:57
PROVIDERS: ADMIT Internal Medicine; ATTEND Internal Medicine